=== PATIENT | male | born 2000 | race Native Hawaiian/Other Pacific Islander ===

== ENCOUNTER 2022-08-29 22:53 | Emergency (ER) | payer BC, SELFPAY ==
[2022-08-29 23:03] VITALS: BP 135/84; PULSE 89; RESP 18; TEMP 36.9; O2SAT 98
--- OUTSIDE RECORDS SUMMARY | 2022-08-29 23:39 | XMS_ITS | Continuity of Care Document ---
:2000 Author Organization [facility] Address Unavailable , Encounter 10/07/21 - 10/07/21 [facility] Encounter Diagnosis Concussion (Discharge Diagnosis) - 10/07/21 Discharge Disposition: Home Attending Physician: Denisse Vogt Admitting Physician: Denisse Vogt Referring Physician: Denisse Vogt Allergies, Adverse Reactions, Alerts Substance Reaction Severity Status Nickel Active Assessment and Plan Extracted from: Title: Clinical Document Author: Denisse Vogt Date : 10/07/21 Emergency Department Work/School Excuse This Patient was seen in the Emergency r oom today. Please excuse from work/school for [_] 1 [_] 2 [x] 3 days Comments: The gradual resumption of acti vity. May require shorter lab/lecture/shop times and frequent breaks for 1 week. Completed by: Denisse Vogt PA-C Extracted from: Title: General medical Author: Denisse Vogt Date: 10/07/21 Impression and Plan Diagnosis Concussion ([id number] S06.0X9A, Discharge , Medical) Plan Patient was given the following educatio nal materials: Concussion, Concussion. Follow up with: Return to Emergency Depa rtment Within no specified period. Typical symptoms of a concussion include headache, dizziness, nausea, confusion, feeling tired or fatigued. These are normal symptoms and can persist for several days. Over the next 48 to 72 hours you need to rest. This includes avoiding both mental and physical exertion. Avoid any strenuous activity and do not perform any activities where you could hit your head agai n. You need to rest mentally as well and this includes avoiding tasks that require intense concentration, thinking or problem-solving. I recommend avoiding screen time including tablets/phone/computer/TV as this can make symptoms worse. After 48 to 72 hours you can gradually r esume your normal activity. You should start with a gentle physical and mental activity such as walking, and do schoolwork or basic desk or computer work. If you are having no symptoms you can continue to gradually increase your activity level. If you do any activities that cause her symptoms to worsen such as increasing headache, nausea, dizziness or tiredness you should stop that activity and try again the next day. If you are feeling back to normal self y ou can resume soccer in about 1 to 2 weeks Most people note that concussion symptom s improve over about a week but it can occasionally take longer. If you still have symptoms at 2 weeks you need to see your primary care provider for reevaluation. Return to ED if symptoms worsen: Severe headache, 3 or more episodes of vomiting, extreme dizziness with inability to walk, extreme fatigue or sleepiness with difficulties waking up from sleep, confusion. Functional Status 10/07/21 ADLs (func) Independent Medications diclofenac sodium 75 mg oral enteric coated tablet 75 MG = 1 tab, orally, 2 times a day, # 14 tab, Refill(s) 0, Pharmacy: [facility] [id number] Start Date: 01/30/19 Stop Date: 02/06/19 Status: OrderedMisc Medication Refill(s) 0 Start Date: 01/30/19 Status: OrderedZofran ODT 4 mg oral tablet, disintegrating 4 MG = 1 tab, orally, 3 times a day, # 3 tab, Refill(s) 0, PRN Nausea/Vomiting, Pharmacy: [id number] Start Date: 01/30/19 Stop Date: 02/01/19 Status: OrderedZofran ODT 8 mg oral tablet, disintegrating 8 MG = 1 tab, orally, every 8 hours, # 6 tab, Refill(s) 0, PRN Nausea/Vomiting Start Date: 09/24/17 Stop Date: 09/26/17 Status: Ordered Mental Status 10/07/21 Able to Report correct day of the week Correct Able to Report correct month Accurate within 5 days Able to Report correct year Correct Problem List Diagnosis Diagnosis Type Effective Dates Health Clinical Infor mant Status Service General medical Reason For Visit 10/07/21 Emergency medicine Concussion Discharge 10/07/21 Non-Specified Diagnosis Results Radiology Reports Exam Date Time Procedure Performing Provider Status 10/07/21 11:[address] HEAD Zaida Garzon; Authenticated Notes:(CT HEAD) Reason For Exam: Head trauma, repeat vomiting;Other (Please Specify)IMAGING INTERPRETATION Exam: Noncontrast CT head. Indication: Fell 2 days ago, vomiting, trauma left parietal skull.. Comparison: None. Findings: No evidence of intraparenchymal or extra-axial hemorrhage, cortical infarct, mass, mass effect, or midline shift. Cortical sulci, ventricles, basal cisterns, and cerebellar sulci are small, compatible with patient's young age. No evidence of depressed skull fracture. Retention cyst posterior left maxillary sinus. Mild mucoperiosteal thickening in the ethmoid sinuses. Slight nasal septal deviation to the right. Mastoid air cells are grossly clear. IMPRESSION: No demonstrable intracranial abnormality. Mild inflammatory changes paranasal sinuses. Michael Jacobson MD, MD (Electronic Signature) 10/07/21 1 Technologist(s): SHANNON Vital Signs Most recent to oldest [Reference Range]: 1 Blood Pressure [100-150/50-95 mmHg] 140/82 mmHg (10/07/21 11:07 AM) Respiratory Rate [12-20 br/min] 16 br/min (10/07/21 11:07 AM) Temperature Oral [96-100 DegF] 98.1 DegF (10/07/21 11:07 AM) Pulse Rate [55-100 bpm] 96 bpm (10/07/21 11:07 AM) Oxygen Saturation [94-100 %] 97 % (10/07/21 11:07 AM) Do you have these Coronavirus symptoms? None (10/07/21 11:07 AM) Close contact w lab confirm Coronavirus No (10/07/21 11:07 AM) Have you traveled to Coronavirus area No (10/07/21 11:07 AM) Social History Social History Type Response Smoking Status Never (less than 100 in life time); Never; Tobacco Screening/Education Patient was screened for tobacco use and is a nonuser. entered on: 10/07/21 Sex Male Hospital Discharge Instructions Patient Coiwmdqgy17/23/2022 12:23:24ConcussionConcussion A concussion??is a type of brain injury.??It can be caused by a direct??hit or blow??to the head, neck, face, or??body. The force of the blow??makes??the head??and brain shake quickly back and forth.??In some cases you??may??lose consciousness.??Depending on the severity of the blow, it will take froma few hours up to a few days to get better. Sometimes symptoms may last a few months or longer. Thisis called post-concussion syndrome. At first, you may have a headache, nausea, vomiting, or dizziness. You may also have problems concentrating or remembering things. This is normal. Symptoms should get better as the hours and days go by. Symptoms that get worse could be a sign of bill serious??brain??injury. This might be a bruise or bleeding in the brain. That???s why it???s important to watch for the warning signs listed below. School-age children are more at risk for symptoms that don???t go away after a concussion. They should be watched very closely.?? Home care If your injury is mild and there are no serious signs or symptoms, your healthcare provider may recommend that you be watched??at home. If there is evidence that the injury is more serious, you will bewatched??in the hospital. Follow these tips to help care for yourself at home: ???After a concussion, your healthcare provider may recommend that a family member or friend watched??you for 12 to 24 hours. They may be told to wake you every few hours during sleep to check for the signs below. ???If your face or scalp swells, apply an ice pack for 20 minutes every 1 to 2 hours. Do this until the swelling starts to go down. To make an ice pack, put ice cubes in a plastic bag that seals at thetop. Wrap the bag in a clean, thin towel or cloth. Never put ice or an ice pack directly on the skin. ???You may use acetaminophen to control pain, unless another pain medicine was prescribed. Don't useaspirin or ibuprofen after a head injury.??If you have long-lasting (chronic)??liver or kidney disease, talk with your healthcare provider??before using these medicines. Also talk with your provider??if you ever had a stomach ulcer or??gastrointestinal bleeding. ???For the next 24 hours: oDon???t drink alcohol or take sedatives or medicines that make you sleepy. oDon???t drive or operate machinery. oDon't do anything strenuous. Don???t lift or strain. ???Don???t return??right away??to sports or??to??any activity??where you could??hit your head. Wait??until all symptoms are gone and you have been cleared by your??healthcare provider.??Having a??second head injury before??you??fully recover??from the first one can lead to serious brain injury. ???After a few days, it???s OK to go back to your normal daily activities. But don???t do anything that could cause your head to be hit again. Follow-up care Follow up with your healthcare provider??in 1 week, or as directed. A radiologist will review any X-rays or CT scans that were taken. You will be told of any new findings that may affect your care. When to seek medical advice Call your healthcare provider right away??if any of these occur: ???Headache??or dizziness??that won???t go away ???Redness, warmth, or pus from the swollen area Call 911 Call 911 or get medical care right away if any of these occur: ???Repeated vomiting (it???s common to vomit??once after a head injury) ???Headache or dizziness that is severe or gets worse ???Loss of consciousness ???Unusual drowsiness, or unable to wake up as usual ???Weakness or decreased ability to walk or move any limb ???Confusion, agitation,??or change in behavior or speech, or memory loss ???Blurred vision ???Convulsion (seizure) ???Swelling on the scalp or face that gets worse ???Changes in pupil size (the black part of the eye) ???Fluid draining from or bleeding from the nose or ears ?? 5218-5713 [employer]. [address], [place] [address]. All rights reserved. This information is not intended as a substitute for professional medical care. Always follow your healthcare professional's instructions. Note Michael Jacobson MD: VERIFY Michael Jacobson MD: VERIFY, TRANSCRIBE Contributor_system, POWERSCRIBE: TRANSCRIBE Event Display: RAD Interpretation Authored Date: Exam: Noncontrast CT head. Indication: Fell 2 days ago, vomiting, trauma left parietal skull.. Comparison: None. Findings: No evidence of intraparenchymal or extra-axial hemorrhage, cortical infarct, mass, mass effect, or midline shift. Cortical sulci, ventricles, basal cisterns, and cerebellar sulci are small, compatible with patient's young age. No evidence of depressed skull fracture. Retention cyst posterior left maxillary sinus. Mild mucoperiosteal thickening in the ethmoid sinuses. Slight nasal septal deviation to the right. Mastoid air cells are grossly clear.
--- OUTSIDE RECORDS SUMMARY | 2022-08-29 23:39 | XMS_ITS | Continuity of Care Document ---
:2000 Author Organization [facility] Address Unavailable , Encounter 01/06/22 - 01/06/22 [facility] Encounter Diagnosis Influenza A (Discharge Diagnosis) - 01/06/22 Discharge Disposition: Home Attending Physician: Surinder Palacios DO Admitting Physician: Surinder Palacios DO Referring Physician: Surinder Palacios DO Allergies, Adverse Reactions, Alerts Substance Reaction Severity Status Nickel Active Assessment and Plan Extracted from: Title: Clinical Document Author: Surinder Palacios DO Da te: 01/06/22 Emergency Department Work/School Excuse This Patient was seen in the Emergency r oom today. Please excuse from work/school for [x] 1 [_] 2 [_] 3 days Comments: Completed by: Slade Palacios DO Extracted from: Title: General medical Author: Surinder Palacios DO Date : 01/06/22 Impression and Plan Impression Diagnosis Influenza A ([id number] J10.1, Discharge, Medical) Plan Condition: Improved. Disposition: Discharged: to home. Prescriptions: Launch prescriptions Pharmacy: oseltamivir 75 mg oral capsule (Prescrib e): 75 MG = 1 CAP, orally, every 12 hours, X 5 Days, # 10 CAP, Refill(s) 0, Pharmacy: [id number] - [facility], [address], 01/06/2022 20:18 CDT, Height, cm, 96.7, 01/06/2022 20:18 CDT, Weight, kg. Patient was given the following educatio nal materials: Influenza (Adult). Follow up with: Follow up with primary c are provider Within no specified period. Return to the ED with any worsening symptoms or concerns.. Counseled: Patient, Family, Regarding di agnosis, Regarding diagnostic results, Regarding treatment plan, Regarding prescription, Patient indicated understanding of instructions. Functional Status 01/06/22 ADLs (func) Independent Disabilities (fun) None Medications diclofenac sodium 75 mg oral enteric coated tablet 75 MG = 1 tab, orally, 2 times a day, # 14 tab, Refill(s) 0, Pharmacy: [facility] [id number] Start Date: 01/30/19 Stop Date: 02/06/19 Status: OrderedMisc Medication Refill(s) 0 Start Date: 01/30/19 Status: Orderedoseltamivir 75 mg oral capsule 75 MG = 1 CAP, orally, every 12 hours, X 5 Days, # 10 CAP, Refill(s) 0, Pharmacy: [id number] - [facility], [address], 01/06/22 20:18:00 CDT, Height, cm, 96.7, 01/06/22 20:18:00 CDT, Weight, kg Start Date: 01/06/22 Stop Date: 01/11/22 Status: OrderedZofran ODT 4 mg oral tablet, disintegrating 4 MG = 1 tab, orally, 3 times a day, # 3 tab, Refill(s) 0, PRN Nausea/Vomiting, Pharmacy: [facility] [id number] Start Date: 01/30/19 Stop Date: 02/01/19 Status: OrderedZofran ODT 8 mg oral tablet, disintegrating 8 MG = 1 tab, orally, every 8 hours, # 6 tab, Refill(s) 0, PRN Nausea/Vomiting Start Date: 09/24/17 Stop Date: 09/26/17 Status: Ordered Mental Status 01/06/22 Able to Report correct day of the week Correct Able to Report correct month Accurate within 5 days Able to Report correct year Correct Problem List Diagnosis Diagnosis Type Effective Dates Health Clinical Infor mant Status Service General medical Reason For Visit 01/06/22 Emergency medicine Influenza A Discharge 01/06/22 Non-Specified Diagnosis Procedures Procedure Date Related Diagnosis Body Site Status Collection of venous blood by 01/06/22 Completed venipuncture Results Laboratory List Name Date CBC/Diff 01/06/22 Comp Met Panel (CMP) 01/06/22 Magnesium, Blood 01/06/22 COVID 19/influenza A/B RNA PCR 01/06/22 Most recent to oldest [Reference Range]: 1 Influenza A PCR [Flu A Not Detected] Flu A Detected *ABN* (01/06/22 8:51 PM) Influenza B PCR [Flu B Not Detected] Flu B Not Detecte d (01/06/22 8:51 PM) Differential Type AUTO *NA* (01/06/22 8:55 PM) Neutro Absolute Auto [1.50-8.00 K/uL] 7.60 K/uL (01/06/22 8:55 PM) Lymph Absolute Auto [1.00-4.80 K/uL] 1.50 K/uL (01/06/22 8:55 PM) [place] Absolute Auto [0.50-1.50 K/uL] .90 K/uL (01/06/22 8:55 PM) Eos Absolute Auto [0.20-0.60 K/uL] .00 K/uL *LOW* (01/06/22 8:55 PM) Baso Absolute Auto [0.00-0.40 K/uL] .00 K/uL (01/06/22 8:55 PM) Neutro% Auto 75.3 % *NA* (01/06/22 8:55 PM) Lymph% Auto 15.1 % *NA* (01/06/22 8:55 PM) Baso% Auto 0.3 % *NA* (01/06/22 8:55 PM) Eos% Auto 0.1 % *NA* (01/06/22 8:55 PM) [place]% Auto 9.2 % *NA* (01/06/22 8:55 PM) First Test No *NA* (01/06/22 8:51 PM) Employed in healthcare No *NA* (01/06/22 8:51 PM) Symptomatic as defined by CDC Yes *NA* (01/06/22 8:51 PM) Hospitalized Unknown *NA* (01/06/22 8:51 PM) ICU Unknown *NA* (01/06/22 8:51 PM) Resides in congregate care setting No *NA* (01/06/22 8:51 PM) ? Not *NA* (01/06/22 8:51 PM) Patient Race Unknown *NA* (01/06/22 8:51 PM) Patient Ethnicity Unknown *NA* (01/06/22 8:51 PM) SARS-CoV-2 [Not Detected] Not Detected (01/06/22 8:51 PM) Albumin [3.5-5.7 g/dL] 4.3 g/dL (01/06/22 8:55 PM) Alk Phos [34-104 mIU/L] 75 mIU/L (01/06/22 8:55 PM) Bili Total [0.0-1.0 mg/dL] 0.5 mg/dL (01/06/22 8:55 PM) Calcium [8.6-10.8 mg/dl] 8.6 mg/dl (01/06/22 8:55 PM) Chloride [98-107 mEq/L] 105 mEq/L (01/06/22 8:55 PM) Magnesium [1.9-2.7 mg/dl] 1.8 mg/dl *LOW* (01/06/22 8:55 PM) Sodium [136-145 mEq/L] 139 mEq/L (01/06/22 8:55 PM) Total Protein [6.4-8.3 g/dL] 7.2 g/dL (01/06/22 8:55 PM) Corrected Calcium [8.9-10.3 mg/dL] 8.4 mg/dL *LOW* (01/06/22 8:55 PM) Anion Gap [8.0-16.0 mEq/L] 12.1 mEq/L (01/06/22 8:55 PM) Calc GFR >60 mL/min/1.73m2 1 *NA* (01/06/22 8:55 PM) BUN [7-25 mg/dL] 10 mg/dL (01/06/22 8:55 PM) Creatinine [0.70-1.30 mg/dl] .85 mg/dl (01/06/22 8:55 PM) Glucose Level [70-99 mg/dl] 131 mg/dl *HI* (01/06/22 8:55 PM) Hct [41.0-53.0 %] 40.8 % *LOW* (01/06/22 8:55 PM) Hgb [13.5-17.5 g/dL] 14.2 g/dL (01/06/22 8:55 PM) Platelet [150-440 K/uL] 221 K/uL (01/06/22 8:55 PM) Potassium [3.5-5.1 mEq/L] 3.1 mEq/L *LOW* (01/06/22 8:55 PM) WBC [4.5-11.0 K/uL] 10.1 K/uL (01/06/22 8:55 PM) ALT [7-52 IU/L] 42 IU/L (01/06/22 8:55 PM) AST [13-39 IU/L] 25 IU/L (01/06/22 8:55 PM) CO2 [21-31 mEq/L] 25 mEq/L (01/06/22 8:55 PM) MCH [26-34 pg] 30 pg (01/06/22 8:55 PM) MCHC [31.0-37.0 g/dL] 34.8 g/dL (01/06/22 8:55 PM) MCV [80-100 fL] 87 fL (01/06/22 8:55 PM) RBC [4.70-6.00 M/uL] 4.67 M/uL *LOW* (01/06/22 8:55 PM) RDW [11.8-15.6 %] 13.1 % (01/06/22 8:55 PM) Estimated Creatinine Clearance 159.81 (01/06/22 9:35 PM) 1Result Comment: This is the calculated GFR - Male.Radiology Reports Exam Date Time Procedure Performing Provider Status 01/06/22 9:06 PM RA CHEST PA Tabatha Aviles; Authenticated Notes:(RA CHEST PA) Reason For Exam: cough/chest painRA CHEST 1 VIEW ONE VIEW CHEST X-RAY INDICATION: Chest pain COMPARISON: No prior studies are available. FINDINGS: The heart and mediastinal contours are normal. Pulmonary vascularity is normal. There are no infiltrates, edema or pleural effusion. The bones and soft tissues are unremarkable for patient age. IMPRESSION: 1. No acute cardiopulmonary abnormality. Electronically signed by: Dr Norman Donald MD 01/06/2022 9:10 PM CDT Study Location: [facility] Workstation: [id number] Norman Donald MD, MD Technologist(s): ADELIA Vital Signs Most recent to oldest 1 2 3 [Reference Range]: Blood Pressure 110/58 mmHg 132/80 mmHg 135/74 mmHg [100-150/50-95 mmHg] (01/06/22 9:34 PM) (01/06/22 9:12 PM) ( 2 8:47 PM) Mean Arterial Pressure 75 mmHg 97 mmHg 94 mmHg (01/06/22 9:34 PM) (01/06/22 9:12 PM) (01/06/22 8:4 7 PM) Machine Mean Arterial 78 mmHg 101 mmHg Pressure (01/06/22 9:34 PM) (01/06/22 9:12 PM) BP Site Left upper arm Left upper arm Left upper arm (01/06/22 9:34 PM) (01/06/22 9:12 PM) (01/06/22 8:5 7 PM) Respiratory Rate [12-20 24 br/min 20 br/min 20 br/mi n br/min] *HI* (01/06/22 9:34 PM) (01/06/22 9:12 PM) (01/06/22 9:39 PM) Temperature Oral [96-100 100.9 DegF DegF] *HI* (01/06/22 8:18 PM) Pulse Rate [55-100 bpm] 106 bpm 102 bpm 105 bpm *HI* *HI* *HI* (01/06/22 9:39 PM) (01/06/22 9:34 PM) (01/06/22 9:1 2 PM) Heart Rate Monitored 101 bpm 101 bpm 104 bpm [59-101 bpm] (01/06/22 9:39 PM) (01/06/22 9:34 PM) *HI* (01/06/22 9:12 PM ) Oxygen Saturation [94-100 99 % 99 % 98 % %] (01/06/22 9:39 PM) (01/06/22 9:34 PM) (01/06/22 9:1 2 PM) Height 176 cm (01/06/22 8:18 PM) Height Method Stated (01/06/22 8:18 PM) Weight 96.7 kg (01/06/22 8:18 PM) Level of Consciousness Alert Alert Alert (01/06/22 10:00 PM) (01/06/22 9:39 PM) (01/06/22 8: 57 PM) Orientation Oriented x 4 Oriented x 4 (01/06/22 9:39 PM) (01/06/22 8:57 PM) Do you have these Fever, Coronavirus symptoms? Cough, Shortness of breath, Chills, Repeated shaking with chills, Muscle pain, Headache, Sore throat (01/06/22 8:18 PM) Close contact w lab confirm No Coronavirus (01/06/22 8:18 PM) Have you traveled to No Coronavirus area (01/06/22 8:18 PM) Social History Social History Type Response Smoking Status Never (less than 100 in life time); Never; Tobacco Screening/Education Patient was screened for tobacco use and is a nonuser. entered on: 10/07/21 Sex Male Hospital Discharge Instructions Patient Rqwaspkld95/25/2022 21:51:47Influenza (Adult)Influenza (Adult) Influenza is also called the flu. It's a viral illness that affects the air passages of your lungs. It's different from the common cold. The flu can easily be passed from one to person to another. It may be spread through the air by coughing and sneezing. Or it can be spread by touching the sick person and then touching your own eyes, nose, or mouth. The flu starts 1 to 3 days after you are exposed to the flu virus. It may last??for 1 to 2 weeks butsometimes people feel tired or fatigued for many weeks afterward. You usually don???t need to take antibiotics unless you are at high risk for or have a complication . This might be an ear or sinus infection or pneumonia. Symptoms of the flu may be mild or severe. They can include extreme tiredness (wanting to stay in bed all day), chills, fevers, muscle aches, soreness with eye movement, headache, and a dry, hacking cough. Antiviral medicine for the flu is available by prescription. If you start taking it within 48 hours,it may help reduce how long your symptoms last and how severe they are. Your provider may do a test to find out if you have influenza and which strain you have. Home care Follow these guidelines when caring for yourself at home: ???Stay away from cigarette smoke, whether yours or other people???s. ???Acetaminophen or ibuprofen will help ease your fever, muscle aches, and headache. Don???t give aspirin to anyone younger than 18 who has the flu. This can cause a serious condition called Carole syndrome. ???Nausea, loose stools, and loss of appetite are common with the flu. Eat light meals. Drink 6 to 8glasses of liquids every day. Good choices are water, sport drinks, soft drinks without caffeine, juices, tea, and soup. Extra fluids will also help loosen secretions in your nose and lungs. ???Virt-olf-oqupjfi cold medicines will not make the flu go away faster. But the medicines may help with coughing, sore throat, and congestion in your nose and sinuses. Don???t use a decongestant if you have high blood pressure. ???Stay home until your fever has been gone for at least 24 hours without using medicine to reduce fever. Follow-up care Follow up with your healthcare provider, or as advised, if you are not getting better over the next week. If you are age 65 or older, talk with your provider about getting a pneumococcal vaccine every 5 years. You should also get this vaccine if you have chronic asthma or COPD. All adults should get a flu vaccine every fall. Ask your provider about this. When to seek medical advice Call your healthcare provider right away if you have the flu and any of these occur: ???Cough with lots of colored mucus (sputum) or blood in your mucus ???Chest pain, shortness of breath, wheezing, or trouble breathing ???Severe headache, or face, neck, or ear pain ???New rash??with fever ???Fever of 100.4??F (38??C)??or higher, or as??directed by your healthcare provider ???Confusion, behavior change, or seizure ???Severe weakness or dizziness ???You get a new??fever or cough after getting better for a few days Also call your provider if you have flu symptoms and have a weakened immune system or are taking medicines that can weaken your immune system. These include steroids and certain anti-inflammatory medicines. ?? [id number] [employer]. [address] [place] [address], [place] [address]. All rights reserved. This information is not intended as a substitute for professional medical care. Always follow your healthcare professional's instructions. Note Norman Donald MD: VERIFY, PERFORM, VERIFY Event Display: RAD Interpretation Authored Date: ONE VIEW CHEST X-RAY INDICATION: Chest pain COMPARISON: No prior studies are available. FINDINGS: The heart and mediastinal contours are normal. Pulmonary vascularity is normal. There are no infiltrates, edema or pleural effusion. The bones and soft tissues are unremarkable for patient age. IMPRESSION: 1. No acute cardiopulmonary abnormality. Electronically signed by: Dr Norman Donald MD 01/06/2022 9:10 PM CDT Study Location: [facility] Workstation: [id number] Norman Donald MD, MD Technologist(s): ADELIA
[2022-08-30] MEDS: BUPIVACAINE 0.25% 30 ML INJECTION (01:21)
[2022-08-30 01:57] VITALS: BP 124/82; PULSE 76; RESP 16
--- NOTE | 2022-08-30 03:06 | ED_ITS ---
HPI - General Adult General Chief complaint: Skin/Abscess/Foreign Body Stated complaint: Toe Pain Time Seen by Provider: 08/29/22 23:12 History of Present Illness HPI narrative: 21-year-old young man accompanied by girlfriend presenting with complaint of bilateral great toe pain. I have seen Juan C for recurrent ingrown toenails in this ED. have performed wedge resections. We have discussed potential need for germinal matrix ablation in the past. Has not been in touch with his primary in some time. Does have a relationship actually with podiatry in the past for another issue. His is struggling over the last couple of weeks with return of pain from ingrown toenails. Has had increasing pain over the last few weeks. Does enjoy playing soccer. Yesterday apparently wrapped some gauze around his toes in an effort at protection. This probably increased pressure and potential injury inside soccer boot. He has had much more pain since then over the last couple of days. Some purulent drainage. But applying antibiotic ointment. Also soaking in warm water. He has not been trying nail edge elevation at night. No fever. Related Data Home Medications Medication Instructions Recorded Confirmed hydrocortisone 2.5 % topical cream applic topical 08/29/22 Allergies Allergy/AdvReac Type Severity Reaction Status Date / Time No Known Drug Allergies Allergy Verified 08/29/22 23:03 Review of Systems Status of ROS: Reports: 6 or more systems reviewed and unremarkable except as noted in History and below [facility] Social History Smoking Status: Never smoker Do you use any of these nicotine containing products: None Second hand tobacco smoke exposure: No How often do you have a drink containing alcohol: never How often do you have six or more drinks on one occasion: Never AUDIT-C Alcohol total score: 0 Non-prescribed substance use: denies use service: No Exam Narrative: Exam Narrative: Pleasant. Bespectacled. Breathing easily. Has feet loosely in knit running shoes. Examination of his feet show medial aspect of the right great toe to be quite heaped up granulation tissue and purulence. Not able to see the corner of the nail edge. Inflammatory changes and sloughing of skin consistent with recurrent or chronic swelling is evident. There is similar inflammation but much less so in the lateral aspect of the nail edge. On the left great toenail bilateral ingrown edges with granulation tissue some erythema purulent drainage it. Little bit less than the right medial nail edge. Also some sloughing of skin consistent with chronic swelling/inflammation. Const: Vital Signs, click to edit/add: Vital Signs - 24 hr 08/29/22 23:03 08/30/22 01:57 Temperature 98.5 F Pulse Rate [Pulse Oximeter] 89 76 Respiratory Rate 18 16 Blood Pressure [Ri ght Upper Arm] 135/84 124/82 Pulse Oximetry 98 Oxygen Delivery Me thod Room Air Documenting provider has reviewed patient's vital signs: yes Course Vital Signs Vital signs: Initial Vital Signs Temperature 98.5 F 08/29/22 23:03 Temperature Source Temporal Artery Scan 08/29/22 23:03 Pulse Rate 89 08/29/22 23:03 Pulse Rhythm 08/29/22 23:03 Respiratory Rate 18 08/29/22 23:03 Blood Pressure 135/84 08/29/22 23:03 Blood Pressure Mean 101 08/29/22 23:03 Pulse Oximetry 98 08/29/22 23:03 Oxygen Delivery Method 08/29/22 23:03 Vital Signs Temperature 98.5 F 08/29/22 23:03 Pulse Rate 89 08/29/22 23:03 Respiratory Rate 18 08/29/22 23:03 Blood Pressure 135/84 08/29/22 23:03 Pulse Oximetry 98 08/29/22 23:03 Oxygen Delivery Method 08/29/22 23:03 Temperature 98.5 F 08/29/22 23:03 Pulse Rate 76 08/30/22 01:57 Respiratory Rate 16 08/30/22 01:57 Blood Pressure 124/82 08/30/22 01:57 Pulse Oximetry 98 08/29/22 23:03 Oxygen Delivery Method 08/29/22 23:03 Medical Decision Making MDM Narrative Medical decision making narrative: We discussed options for care and that I would encourage him to follow up outpatient with primary or Podiatry as discussed for more definitive treatment. He does not have that arranged yet and understandably would like more immediate relief of his pain. Would like to proceed with wedge resection of great toenails. Informed consent obtained. Reason for wedge resection is pain and paronychia. Set up to soak in Hibiclens water solution. Injected both great toes with Marcaine. Generally good anesthesia was achieved ultimately re-dosing was required for the medial aspect of the left great toenail. Toes were cleansed with Betadine. An elevator used to elevate the medial nail aspect of the right great toe and bilateral edges of the left great toenail. Nail was cut with suture scissors and removed wedge with mosquito. Granulation tissue was trimmed from all edges. Cautery applied with silver nitrate was needed on both medial nail edges. Antibiotic ointment, Telfa nonstick dressing, Kerlix gauze and Coban applied in light pressure dressing. Tolerated quite well. Only complication or challenge was getting full anesthesia of the medial edge of the left great toenail. Ultimately this was accomplished. Less than 5 mL of blood loss. Discharge Plan Discharge Clinical Impression: Ingrowing right great toenail, Ingrowing left great toenail, Paronychia due to ingrown nail Patient Disposition: Home w/ Parent or Adult Condition: Improved Instructions: Ingrown Nail (ED), Nail Removal (ED) Additional Instructions: Elevate, ibuprofen, acetaminophen for discomfort. I would soak your toes in warm soapy or warm epsom salt water daily over the next 4 - [address] antibiotic ointment and nonstick dressing of some sort over the next 5 days and then can probably go to a dry dressing/band-aid for protection. Watch for increasing redness after 2 days, swelling, marked increase in pain, purulent drainage. I think it would be good to reestablish with primary care. Talk with them or Dr. Cordero since you already have a relationship with him about actually cauterizing part of the nail bed, particularly on your right toe. Remember you want to generally be able to see the corners of your toenails. Yes. Do look for some wide soccer boots. Try on a few different pairs to see what is really going to work for you. Prescriptions: No Action hydrocortisone 2.5 % cream TOPICAL Label Comments: APPLY CREAM TO AFFECTED AREA TWICE DAILY NEEDED Follow Up/Referrals: Geovanna Mcwilliams MD [Primary Care Provider] - Stand Alone Forms: [facility] Info Instructions
== END 2022-08-30 01:58 | disposition home or self-care (01) ==
PROVIDERS: Emergency Provider Family Medicine; PCP Pediatrics
DX: L60.0 Ingrowing nail (principal); L03.032 Cellulitis of left toe; L03.031 Cellulitis of right toe
CPT/HCPCS: 11765; 99283; 99284; J3490

== ENCOUNTER 2022-09-18 11:02 | Emergency (ER) | payer BC, SELFPAY ==
[2022-09-18 11:18] VITALS: BP 124/81; PULSE 74; RESP 16; TEMP 36.4; O2SAT 100; BMI 30.6
--- NOTE | 2022-09-18 11:46 | ED.LOWEXIN ---
HPI - Extremity Injury (Lower) General Chief Complaint: Extremity Pain/Injury, Lower Stated Complaint: Ingrown toenail RT big toe Time Seen by Provider: 09/18/22 11:35 History of Present Illness HPI Narrative: This 22-year-old male comes in with an injury to his right great toenail. He states that he had this toenail trimmed back because it was growing in on the medial aspect. This was trimmed about a week ago. Today just prior to arrival here an object fell onto this same toe. It landed on the lateral aspect of the toenail. He has a small amount of dried blood along the border of the nail with the skin of the toe. He does not report any other injury. Related Data Home Medications Medication Instructions Recorded Confirmed No Known Home Medications 09/18/22 09/18/22 Allergies Allergy/AdvReac Type Severity Reaction Status Date / Time No Known Drug Allergies Allergy Verified 08/29/22 23:03 Review of Systems Status of ROS: Reports: 10 or more systems reviewed and unremarkable except as noted in History and below Narrative: Constitutional: No fevers, no weight gain or loss. Eyes: No discharge. No vision changes. HENT: No congestion, no sore throat, no ear pain. Cardiovascular: No chest pain, no palpitations. Respiratory: No shortness of breath, no wheezes, no cough. Gastrointestinal: No abdominal pain, no vomiting, no diarrhea. Genitourinary: No dysuria, no hematuria. Musculoskeletal: Normal range of motion. Skin: No rashes, no pruritis. Neurological: No dizziness, weakness, sensory change, speech change. Endo/Heme/Allergies: No bruising or bleeding. No polydipsia. Pysch: no suicidality, no anxiety, no insomnia. All other systems reviewed and are negative. [facility] Social History Smoking Status: Never smoker Do you use any of these nicotine containing products: None Second hand tobacco smoke exposure: No How often do you have a drink containing alcohol: never How often do you have six or more drinks on one occasion: Never AUDIT-C Alcohol total score: 0 Non-prescribed substance use: denies use service: No Exam Narrative: Exam Narrative: Constitutional: Well-developed, well-nourished, no acute distress. HEENT: Normocephalic, atraumatic. Neck: Normal range of motion. Nontender. Supple. Heart: Regular. No murmurs. Normal rate. Intact distal pulses. Lungs: Clear to auscultation. No chest discomfort. No wheezes, rhonchi, or rales. Abdomen: Normal bowel sounds. Nontender. No rebound tenderness. Genitalia: Deferred. Back: No midline tenderness. Normal range of motion. Extremities: Normal range of motion. Small amount of dried blood along the lateral border of the right great toenail. There is no sign of laceration. Skin: Intact. No rash. Warm. No erythema or pallor. Neurologic: No altered sensation. No weakness. Alert and oriented. Psychiatric: No suicidality. No anxiety or depression. No insomnia. Nursing notes and vitals signs are reviewed. Const: Vital Signs, click to edit/add: Vital Signs - 24 hr 09/18/22 11:18 Temperature 97.5 F L Pulse Rate [Pulse Oximeter] 74 Respiratory Rate 16 Blood Pressure [Ri ght Upper Arm] 124/81 Pulse Oximetry 100 Oxygen Delivery Me thod Room Air Course Vital Signs Vital signs: Initial Vital Signs Temperature 97.5 F L 09/18/22 11:18 Temperature Source Temporal Artery Scan 09/18/22 11:18 Pulse Rate 74 09/18/22 11:18 Respiratory Rate 16 09/18/22 11:18 Blood Pressure 124/81 09/18/22 11:18 Blood Pressure Mean 95 09/18/22 11:18 Blood Pressure Position Supine 09/18/22 11:18 Pulse Oximetry 100 09/18/22 11:18 Oxygen Delivery Method 09/18/22 11:18 Vital Signs Temperature 97.5 F L 09/18/22 11:18 Pulse Rate 74 09/18/22 11:18 Respiratory Rate 16 09/18/22 11:18 Blood Pressure 124/81 09/18/22 11:18 Pulse Oximetry 100 09/18/22 11:18 Oxygen Delivery Method 09/18/22 11:18 Temperature 97.5 F L 09/18/22 11:18 Pulse Rate 74 09/18/22 11:18 Respiratory Rate 16 09/18/22 11:18 Blood Pressure 124/81 09/18/22 11:18 Pulse Oximetry 100 09/18/22 11:18 Oxygen Delivery Method 09/18/22 11:18 MDM - Extremity Injury (Lower) MDM Narrative Medical decision making narrative: This patient comes in for evaluation of an injury to his right great toenail. This same toenail was trimmed back on the medial aspect about a week ago. Today he has some dried blood along the lateral aspect because of an object that fell onto it just prior to arrival. I did clean this dried blood away from the nail and it is border with the skin of his right great toe. There is no laceration needing repair. There is no subungual hematoma. Discharge Plan Discharge Clinical Impression: Injury of toe on right foot Patient Disposition: Home, Self-Care Condition: Stable Additional Instructions: Increase activity as tolerated. Use [id number] medicines as needed and directed. Follow up with MD or return if worsening. Prescriptions: No Action No Known Home Medications Follow Up/Referrals: Geovanna Mcwilliams MD [Primary Care Provider] - Stand Alone Forms: [employer] Info Instructions
== END 2022-09-18 12:10 | disposition home or self-care (01) ==
LOC: ED 12:01
PROVIDERS: Emergency Provider Emergency Medicine Emergency Medical Services; PCP Pediatrics
DX: S99.921A Unspecified injury of right foot, initial encounter (principal); W20.8XXA Other cause of strike by thrown, projected or falling object, initial encounter
CPT/HCPCS: 99282; 99283; 99284

== ENCOUNTER 2022-11-04 18:38 | Emergency (ER) | payer BC, SELFPAY ==
[2022-11-04 19:06] VITALS: BP 147/82; PULSE 82; RESP 16; TEMP 36.4; O2SAT 97; BMI 31.9
--- NOTE | 2022-11-04 19:31 | ED.GENADULT ---
HPI - General Adult General Chief complaint: Extremity Pain/Injury, Lower Stated complaint: Infected Toenail Time Seen by Provider: 11/04/22 19:12 History of Present Illness HPI narrative: This 22-year-old male comes in reporting pain and swelling with some discharge on the lateral aspect of the distal corner of his right great toenail. He has had some problems with this toe over the past month or more and did have the medial aspect trim back. The corner of the lateral aspect of this same toenail may be cutting into his tissue and increasing risk for infection. Currently he has swelling with some discomfort and a small amount discharge in this area. The nail itself appears healthy. He states that he is attempting to use footwear that is comfortable. He does work on his feet every day. Related Data Home Medications Medication Instructions Recorded Confirmed No Known Home Medications 09/18/22 09/18/22 Allergies Allergy/AdvReac Type Severity Reaction Status Date / Time No Known Drug Allergies Allergy Verified 11/04/22 19:09 Review of Systems Status of ROS: Reports: 10 or more systems reviewed and unremarkable except as noted in History and below Narrative: Constitutional: No fevers, no weight gain or loss. Eyes: No discharge. No vision changes. HENT: No congestion, no sore throat, no ear pain. Cardiovascular: No chest pain, no palpitations. Respiratory: No shortness of breath, no wheezes, no cough. Gastrointestinal: No abdominal pain, no vomiting, no diarrhea. Genitourinary: No dysuria, no hematuria. Musculoskeletal: Normal range of motion. Infected right great toe as described above. Skin: No rashes, no pruritis. Neurological: No dizziness, weakness, sensory change, speech change. Endo/Heme/Allergies: No bruising or bleeding. No polydipsia. Pysch: no suicidality, no anxiety, no insomnia. All other systems reviewed and are negative. [facility] Social History Smoking Status: Never smoker Do you use any of these nicotine containing products: None Second hand tobacco smoke exposure: No How often do you have a drink containing alcohol: never How often do you have six or more drinks on one occasion: Never AUDIT-C Alcohol total score: 0 Non-prescribed substance use: denies use service: No Exam Narrative: Exam Narrative: Constitutional: Well-developed, well-nourished, no acute distress. HEENT: Normocephalic, atraumatic. Neck: Normal range of motion. Nontender. Supple. Heart: Intact distal pulses. Lungs: No chest discomfort. No wheezes, rhonchi, or rales. Abdomen: Nontender. Back: Normal range of motion. Extremities: Normal range of motion. The lateral aspect of the distal portion of the right great toe has swelling overlying the corner of the toenail with small amount of discharge. Skin: Intact. No rash. Warm. No erythema or pallor. Neurologic: No altered sensation. No weakness. Alert and oriented. Psychiatric: No suicidality. No anxiety or depression. No insomnia. Nursing notes and vitals signs are reviewed. Const: Vital Signs, click to edit/add: Vital Signs - 24 hr 11/04/22 19:06 Temperature 97.6 F Pulse Rate [Pulse Oximeter] 82 Respiratory Rate 16 Blood Pressure [Ri ght Upper Arm] 147/82 H Pulse Oximetry 97 Oxygen Delivery Me thod Room Air Course Vital Signs Vital signs: Initial Vital Signs Temperature 97.6 F 11/04/22 19:06 Temperature Source Temporal Artery Scan 11/04/22 19:06 Pulse Rate 82 11/04/22 19:06 Pulse Rhythm Regular 11/04/22 19:06 Pulse Strength 3+ Normal 11/04/22 19:06 Respiratory Rate 16 11/04/22 19:06 Blood Pressure 147/82 H 11/04/22 19:06 Blood Pressure Mean 103 11/04/22 19:06 Blood Pressure Position Supine 11/04/22 19:06 Pulse Oximetry 97 11/04/22 19:06 Oxygen Delivery Method Room Air 11/04/22 19:06 Vital Signs Temperature 97.6 F 11/04/22 19:06 Pulse Rate 82 11/04/22 19:06 Respiratory Rate 16 11/04/22 19:06 Blood Pressure 147/82 H 11/04/22 19:06 Pulse Oximetry 97 11/04/22 19:06 Oxygen Delivery Method Room Air 11/04/22 19:06 Temperature 97.6 F 11/04/22 19:06 Pulse Rate 82 11/04/22 19:06 Respiratory Rate 16 11/04/22 19:06 Blood Pressure 147/82 H 11/04/22 19:06 Pulse Oximetry 97 11/04/22 19:06 Oxygen Delivery Method Room Air 11/04/22 19:06 Medical Decision Making MDM Narrative Medical decision making narrative: This patient has a paronychial infection of the right great toenail. He may benefit from a podiatry visit as he has had persistent symptoms in this regard. It may be beneficial to trim back the nail or remove the nail. The patient received a prescription for Keflex and is encouraged to use comfortable footwear. He should follow-up with his primary physician or with a teacher dramatics for ongoing management. Discharge Plan Discharge Clinical Impression: Paronychia of great toe Patient Disposition: Home, Self-Care Condition: Unchanged Additional Instructions: Take medication as prescribed. Follow up with primary physician or teacher dramatics for ongoing management. Return if worsening. Prescriptions: No Action No Known Home Medications Follow Up/Referrals: Geovanna Mcwilliams MD [Primary Care Provider] - Stand Alone Forms: [employer] Info Instructions
--- OUTSIDE RECORDS SUMMARY | 2022-11-04 19:43 | XMS_ITS | Continuity of Care Document ---
Author Name Unknown Organization [facility] Address [address] [place] [address] En[facility] 08[facility]18[facility]20 [facility] [address] [place] [address] Discharge Disposition: Home Attending Physician: Ridge Dennis DPSvetlana Admitting Physician: Ridge Dennis DPM Referring Physician: Ridge Dennis DPM Allergies, Adverse Reactions, Alerts Substance Reaction Severity Status Nickel Active Results Laboratory List Name Date SARS Coronavirus 2 RNA Detection, V (COV ID PCR MML) 08/18/20 Most recent to oldest [Reference Range]: 1 First Test Yes (08/18/20 2:08 PM) Employed in healthcare No (08/18/20 2:08 PM) Symptomatic as defined by CDC Yes (08/18/20 2:08 PM) Hospitalized No (08/18/20 2:08 PM) ICU No (08/18/20 2:08 PM) Resides in congregate care setting No (08/18/20 2:08 PM) ? Not (08/18/20 2:08 PM) Patient Race Unknown (08/18/20 2:08 PM) Patient Ethnicity / (08/18/20 2:08 PM) Social History Social History Type Response Smoking Status Never (less than 100 in lifetime);Never; Previous treatment: None; Ready to change: No; Smoking in Household No; Interest in Smoking Cessation Class No; Pt received Daniel Smoking Cessation [facility] Ed No entered on: 01/30/19 Sex Male
--- OUTSIDE RECORDS SUMMARY | 2022-11-04 19:43 | XMS_ITS | Referral Summary ---
Author Name Unknown Organization [facility] Address [address] [place] [phone] Encounter 09/24/17 - 09/24/17 [facility] [address] [place], [place] [address] [address] [facility] Discharge Disposition: Home Attending Physician: Deshawn Hughes MD Admitting Physician: Deshawn Hughes MD Referring Physician: Deshawn Hughes MD Reason for Visit YI Vital Signs 09/24/17 Blood Pressure 128/65mmHg (Normal is 85-11 5/60-75 mmHg) Temperature Oral 98.0 DegF (Normal is 96-1 00 DegF) Pulse Rate 80 bpm (Normal is 60-11 0 bpm) Weight 80.8 kg ADLs (func) Independent Able to Report correct year Correct Able to Report correct month Accurate within 5 d ays Able to Report correct day o f the week Correct Characteristics of Speech Clear Neurological Symptoms None Neurological Symptoms Headache Neurological Symptoms Headache, Nausea Level of Consciousness Alert Orientation Oriented x 4 Allergies, Adverse Reactions, Alerts Nickel Medications ondansetron (Zofran ODT 8 mg oral tablet, disintegrating) 1 tab orally every 8 hours as needed Nausea/Vomiting for 2 Days. Refills: 0. Ordering provider: Deshawn Hughes MD Results 09/24/17 Sodium 140 mEq/L (Normal is 136-1 45 mEq/L) Potassium 3.5 mEq/L (Normal is 3.5-5 .1 mEq/L) Chloride 104 mEq/L (Normal is 98-10 7 mEq/L) CO2 27 mEq/L (Normal is 21-31 mEq/L) Anion Gap 12.5 mEq/L (Normal is 8.0-1 6.0 mEq/L) Glucose Level 120 mg/dL (Normal is 70-99 mg/dL) BUN 8 mg/dL (Normal is 7-25 mg/dL) Creatinine .78 mg/dL (Normal is 0.70- 1.30 mg/dL) Calcium 9.9 mg/dL (Normal is 8.6-1 0.8 mg/dL) Total Protein 7.5 g/dL (Normal is 6.4-8 .3 g/dL) Albumin 4.8 g/dL (Normal is 3.5-5 .7 g/dL) Bili Total 0.3 mg/dL (Normal is 0.0-1 .0 mg/dL) Alk Phos 137 IU/L (Normal is 34-10 4 IU/L) AST 22 IU/L (Normal is 13-39 IU/L) ALT 17 IU/L (Normal is 7-52 IU/L) Corrected Calcium 9.3 mg/dL (Normal is 8.9 -10.3 mg/dL) Lactic Acid Venous 1.0 mmole/L (Normal is 0. 5-2.2 mmole/L) Procalcitonin Lvl 0.06 ng/mL (Normal is 0.0 0-0.50 ng/mL) WBC 6.3 K/uL (Normal is 4.5-1 3.5 K/uL) RBC 5.11 M/uL (Normal is 4.20- 5.60 M/uL) Hgb 15.3 g/dL (Normal is 13.0- 16.0 g/dL) Hct 43.1 % (Normal is 36.0- 50.0 %) MCV 84 fL (Normal is 78-98 fL) MCH 30 pg (Normal is 25-35 pg) MCHC 35.5 g/dL (Normal is 31.0- 37.0 g/dL) RDW 12.1 % (Normal is 11.8- 15.6 %) Platelet 224 K/uL (Normal is 150-4 40 K/uL) Manual Diff? No Man Diff Neutro Percent 50 % (Normal is 50-70 %) Lymph Percent 38 % (Normal is 20-44 %) [place] Percent 10 % (Normal is 2-9 % ) Eos Percent 2 % (Normal is 0-4 % ) Baso Percent 0 % (Normal is 0-2 % ) Neutro Absolute 3.2 K/uL (Normal is 1.5-8 .0 K/uL) Lymph Absolute 2.4 K/uL (Normal is 1.2-5 .2 K/uL) [place] Absolute 0.6 K/uL (Normal is 0.5-1 .5 K/uL) Eos Absolute 0.1 K/uL (Normal is 0.2-0 .6 K/uL) Baso Absolute 0.0 K/uL (Normal is 0.0-0 .4 K/uL) [place] Screen Negative (Normal is Negat carlos) Strep A PCR Strep A Not Detected (Normal is Strep A Not Detected) Encounter Procedures Collection of venous blood by venipuncture Assessment and Plan Extracted from: Title:Headache Author:Deshawn Hughes MD Date:06/01 Impression and Plan Diagnosis Viral sinusitis ([id number] J32.9, Working, Medical) Plan Condition: Improved, Stable. Disposition: Discharged: Time 09/24/2017 18:10:00, to home. Prescriptions: Zofran 8 mg ODT 1 every 8 hours prn #6. Patient was given the following educational materials: SINUSITIS, No Abx, HEADACHE, Unspecified. Follow up with: Follow up with primary care provider Within 3-5 days, only if needed. Counseled: Patient, Family, Regarding diagnosis, Regarding diagnostic results, Regarding treatment plan, Regarding prescription, Patient indicated understanding of instructions. Instructions Patient Education 09/24/2017 15:59:56 HEADACHE, Unspecified Headache, Unspecified Headaches can be caused by a number of things. The cause of your headache isn???t clear. But it doesn???t seem to be a sign of any serious illness. You could have a tension headache or a migraine headache. Stress can cause a tension headache. This can happen if you tense the muscles of your shoulders, neck, and scalp without knowing it. If this stress lasts long enough, you may develop a tension headache. It is not clear why migraines occur, but transient factors called triggers can raise the risk of having a migraine attack. Migraine triggers may include emotional stress or depression, or by hormone changes during the menstrual cycle. Other triggers include control pills and other medicines, alcohol or caffeine, foods with tyramine, eye strain, weather changes, missed meals, and lack of sleep or oversleeping. Other causes of headache include: ?? Viral illness with high fever ?? Head injury with concussion ?? Sinus, ear, or throat infection ?? Dental pain and jaw joint (TMJ) pain More serious but less common causes of headache include stroke, brain hemorrhage, brain tumor, meningitis, and encephalitis. Home care Follow these tips when taking care of yourself at home: ?? Don???t drive yourself home if you were given pain medicine for your headache. Instead, have someone else drive you home. Try to sleep when you get home. You should feel much better when you wake up. ?? Apply heat to the back of your neck to ease a neck muscle spasm. Take care of a migraine headache by putting an ice pack on your forehead or at the base of your skull. ?? If you have nausea or vomiting, eat a light diet until your headache eases. ?? If you have a migraine headache, use sunglasses when in the daylight or around bright indoor lighting until your symptoms get better. Bright glaring light can make this type of headache worse. Follow-up care Follow up with your health care provider if your headache doesn???t get better within the next 24 hours. Talk with your provider If you have frequent headaches. He or she can help figure out a treatment plan. By knowing the earliest signs of headache, and starting treatment right away, you may be able to stop the pain yourself. When to seek medical advice Call your health care provider right away??if any of these occur: ?? Your head pain gets worse ?? Your head pain doesn???t get better within 24 hours ?? You aren???t able to keep liquids down (repeated vomiting) ?? Fever of 100.4??F (38??C) or higher, or as directed by your health care provider ?? Stiff neck ?? Extreme drowsiness, confusion, or fainting ?? Dizziness or dizziness with spinning sensation (vertigo) ?? Weakness in an arm or leg or one side of your face ?? You have difficulty talking or seeing ?? [id number] [employer]. [address] [place] [address], [place] [address]. All rights reserved. This information is not intended as a substitute for professional medical care. Always follow your healthcare professional's instructions. HEADACHE, Unspecified Headache, Unspecified Headaches can be caused by a number of things. The cause of your headache isn???t clear. But it doesn???t seem to be a sign of any serious illness. You could have a tension headache or a migraine headache. Stress can cause a tension headache. This can happen if you tense the muscles of your shoulders, neck, and scalp without knowing it. If this stress lasts long enough, you may develop a tension headache. It is not clear why migraines occur, but transient factors called triggers can raise the risk of having a migraine attack. Migraine triggers may include emotional stress or depression, or by hormone changes during the menstrual cycle. Other triggers include control pills and other medicines, alcohol or caffeine, foods with tyramine, eye strain, weather changes, missed meals, and lack of sleep or oversleeping. Other causes of headache include: ?? Viral illness with high fever ?? Head injury with concussion ?? Sinus, ear, or throat infection ?? Dental pain and jaw joint (TMJ) pain More serious but less common causes of headache include stroke, brain hemorrhage, brain tumor, meningitis, and encephalitis. Home care Follow these tips when taking care of yourself at home: ?? Don???t drive yourself home if you were given pain medicine for your headache. Instead, have someone else drive you home. Try to sleep when you get home. You should feel much better when you wake up. ?? Apply heat to the back of your neck to ease a neck muscle spasm. Take care of a migraine headache by putting an ice pack on your forehead or at the base of your skull. ?? If you have nausea or vomiting, eat a light diet until your headache eases. ?? If you have a migraine headache, use sunglasses when in the daylight or around bright indoor lighting until your symptoms get better. Bright glaring light can make this type of headache worse. Follow-up care Follow up with your health care provider if your headache doesn???t get better within the next 24 hours. Talk with your provider If you have frequent headaches. He or she can help figure out a treatment plan. By knowing the earliest signs of headache, and starting treatment right away, you may be able to stop the pain yourself. When to seek medical advice Call your health care provider right away??if any of these occur: ?? Your head pain gets worse ?? Your head pain doesn???t get better within 24 hours ?? You aren???t able to keep liquids down (repeated vomiting) ?? Fever of 100.4??F (38??C) or higher, or as directed by your health care provider ?? Stiff neck ?? Extreme drowsiness, confusion, or fainting ?? Dizziness or dizziness with spinning sensation (vertigo) ?? Weakness in an arm or leg or one side of your face ?? You have difficulty talking or seeing ?? [id number] [employer]. [address] [place] [address], [place] [address]. All rights reserved. This information is not intended as a substitute for professional medical care. Always follow your healthcare professional's instructions. SINUSITIS, No Abx Sinusitis (No Antibiotics) The sinuses are air-filled spaces within the bones of the face. They connect to the inside of the nose.??Sinusitis??is an inflammation of the tissue lining the sinus cavity. Sinus inflammation can occur during a cold.??It can also be due to allergies to pollens and other particles in the air.??It can cause symptoms such as sinus congestion,??headache, sore throat, facial swelling??and fullness. It may also cause a low-grade fever.??No infection is present, and no antibiotic treatment is needed. Home care ?? Drink plenty of water, hot tea, and other liquids. This may help thin mucus. It also may promotesinus drainage. ?? Heat may help soothe painful areas of the face. Use a towel soaked in hot water. Or, business librarian the shower and direct the hot spray onto your face. Using a vaporizer along with a menthol rub at night may also help. ?? An??expectorant??containing guaifenesin may help thin the mucus and promote drainage from the sinuses. ?? [id number]??decongestants??may be used unless a similar medicine was prescribed. Nasal sprays work the fastest. Use one that contains phenylephrine or oxymetazoline. First blow the nose gently. Then use the spray. Do not use these medicines more often than directed on the label or symptomsmay get worse. You may also use tablets containing pseudoephedrine. Avoid products that combine ingredients, because side effects may be increased. Read labels. You can also ask the pharmacist for help. (NOTE:??Persons with high blood pressure should not use decongestants. They can raise blood pressure.) ?? Hawl-vcj-jirejrv??antihistamines??may help if allergies contributed to your sinusitis. ?? Use acetaminophen or ibuprofen to control pain, unless another pain medicine was prescribed. (Ifyou have chronic liver or kidney disease or ever had a stomach ulcer, talk with your doctor before using these medicines. Aspirin should never be used in anyone under 18 years of age who is ill with a fever. It may cause severe liver damage.) ?? Use nasal rinses or irrigation as instructed by your health care provider. ?? Don't smoke. This can worsen symptoms. Follow-up care Follow up with your healthcare provider or our staff if you are not improving within the next week. When to seek medical advice Call your healthcare provider if any of these occur: ?? Green or yellow discharge from the nose or into the throat ?? Facial pain or headache becoming more severe ?? Stiff neck ?? Unusual drowsiness or confusion ?? Swelling of the forehead or eyelids ?? Vision problems, including blurred or double vision ?? Fever of??100.4??F (38??C)??or higher, or as directed by your healthcare provider ?? Seizure ?? Breathing problems ?? Symptoms not resolving within 10 days ?? [id number] [employer]. [address] [place] [address], [place] [address]. All rights reserved. This information is not intended as a substitute for professional medical care. Always follow your healthcare professional's instructions. SINUSITIS, No Abx Sinusitis (No Antibiotics) The sinuses are air-filled spaces within the bones of the face. They connect to the inside of the nose.??Sinusitis??is an inflammation of the tissue lining the sinus cavity. Sinus inflammation can occur during a cold.??It can also be due to allergies to pollens and other particles in the air.??It can cause symptoms such as sinus congestion,??headache, sore throat, facial swelling??and fullness. It may also cause a low-grade fever.??No infection is present, and no antibiotic treatment is needed. Home care ?? Drink plenty of water, hot tea, and other liquids. This may help thin mucus. It also may promotesinus drainage. ?? Heat may help soothe painful areas of the face. Use a towel soaked in hot water. Or, business librarian the shower and direct the hot spray onto your face. Using a vaporizer along with a menthol rub at night may also help. ?? An??expectorant??containing guaifenesin may help thin the mucus and promote drainage from the sinuses. ?? [id number]??decongestants??may be used unless a similar medicine was prescribed. Nasal sprays work the fastest. Use one that contains phenylephrine or oxymetazoline. First blow the nose gently. Then use the spray. Do not use these medicines more often than directed on the label or symptomsmay get worse. You may also use tablets containing pseudoephedrine. Avoid products that combine ingredients, because side effects may be increased. Read labels. You can also ask the pharmacist for help. (NOTE:??Persons with high blood pressure should not use decongestants. They can raise blood pressure.) ?? Zsue-xes-gdgyjmj??antihistamines??may help if allergies contributed to your sinusitis. ?? Use acetaminophen or ibuprofen to control pain, unless another pain medicine was prescribed. (Ifyou have chronic liver or kidney disease or ever had a stomach ulcer, talk with your doctor before using these medicines. Aspirin should never be used in anyone under 18 years of age who is ill with a fever. It may cause severe liver damage.) ?? Use nasal rinses or irrigation as instructed by your health care provider. ?? Don't smoke. This can worsen symptoms. Follow-up care Follow up with your healthcare provider or our staff if you are not improving within the next week. When to seek medical advice Call your healthcare provider if any of these occur: ?? Green or yellow discharge from the nose or into the throat ?? Facial pain or headache becoming more severe ?? Stiff neck ?? Unusual drowsiness or confusion ?? Swelling of the forehead or eyelids ?? Vision problems, including blurred or double vision ?? Fever of??100.4??F (38??C)??or higher, or as directed by your healthcare provider ?? Seizure ?? Breathing problems ?? Symptoms not resolving within 10 days ?? [id number] [employer]. [address] [place] [address], [place] [address]. All rights reserved. This information is not intended as a substitute for professional medical care. Always follow your healthcare professional's instructions.
--- OUTSIDE RECORDS SUMMARY | 2022-11-04 19:43 | XMS_ITS | Continuity of Care Document ---
Author Name Unknown Organization [facility] Address [address] [place] [phone] Encounter 08/30/20 - 08/30/20 [facility] [address] [place] [phone] Discharge Disposition: Home Attending Physician: Stacy Harding NP Admitting Physician: Stacy Harding NP Referring Physician: Stacy Harding NP Allergies, Adverse Reactions, Alerts Substance Reaction Severity Status Nickel Active Social History Social History Type Response Smoking Status Never (less than 100 in lifetime);Never; Previous treatment: None; Ready to change: No; Smoking in Household No; Interest in Smoking Cessation Class No; Pt received Daniel Smoking Cessation [facility] Ed No entered on: 01/30/19 Sex Male
[2022-11-04 19:47] VITALS: PULSE 82; RESP 16; O2SAT 96
== END 2022-11-04 19:54 | disposition home or self-care (01) ==
LOC: ED 19:42
PROVIDERS: Emergency Provider Emergency Medicine Emergency Medical Services; PCP Pediatrics
DX: L03.031 Cellulitis of right toe (principal)
CPT/HCPCS: 99283; 99284

== ENCOUNTER 2024-02-22 15:23 | Emergency (ER) | payer BC, SELFPAY ==
[2024-02-22 15:27] VITALS: BP 143/78; PULSE 68; RESP 16; TEMP 35.9; O2SAT 99; BMI 31.0
--- NOTE | 2024-02-22 16:13 | ED_ITS ---
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 Patient notes that he was at work at [employer] in [place] and at approximately 1130 had the onset of lightheadedness while he was talking to a customer. He was able to finish talking to the customer and then went and sat down and the lightheadedness increased. He then began experience difficulty speaking and this lasted for approximately 5 minutes. He had no unusual shaking, loss of bladder or bowel control. He denied chest pain or shortness of breath. He had no changes in his vision but had the onset of a headache when this occurred. He notes that he is still lightheaded and his headache is in his forehead and the back of the head. It is exacerbated-both the pain and the lightheadedness if he tries to look up or moves his head suddenly. He denies any neck pain. He denies any ear f ullness or fainting even though he states he felt like he was going to faint when this started. Juan C does not have a past history of migraine, had eaten prior to this incident, is not experiencing fever chills sore throat runny nose diarrhea or dysuria. He has not been on any extended car rides or plane trips and denies lower extremity edema or calf tenderness. Related Data Home Medications ?Medication ?Instructions ?Recorded ?Confirmed No Known Home Medications 02/22/24 02/22/24 Allergies Allergy/AdvReac Type Severity Reaction Status Date / Time nickel Allergy Unknown Verified 02/22/24 15:30 Review of Systems Status of ROS: Reports: 10 or more systems reviewed and unremarkable except as noted in History and below Const: Denies: fever or chills Eyes: Denies: change in vision, blurry vision, blind spots, eye discharge or floaters ENMT: Denies: throat pain, change in hearing, tinnitus, vertigo, nasal discharge or nasal congestion Cardio: Reports: lightheadedness; Denies: chest pain, palpitations, edema, swelling of feet/ankles or shortness of breath with exertion Resp: Denies: shortness of breath, cough or wheezing GI: Reports: nausea; Denies: abdominal pain, vomiting, diarrhea or constipation : Denies: painful urination or urinary frequency Musculo: Denies: back pain Integ/Breast: Denies: rash Neuro: Reports: headache and dizziness; Denies: numbness in extremities, weakness in extremities or vertigo Allergy/Immuno: Denies: wheezing PFSH PFSH Social History Smoking Status: Never smoker Do you use any of these nicotine containing products: None Second hand tobacco smoke exposure: No How often do you have a drink containing alcohol: never How often do you have six or more drinks on one occasion: Never AUDIT-C Alcohol total score: 0 Non-prescribed substance use: denies use service: No Exam Narrative: Exam Narrative: Patient is alert and oriented. No acute distress. Does seem somewhat fatigued. Mentation is normal. EOM is full. No nystagmus noted. TMs without erythema or fluid. Neck is supple without lymphadenopathy. Heart with regular rate and rhythm. Lungs are clear bilaterally. Abdomen soft nontender. Moving all extremities. Upper and lower extremity strength fully intact. NIH SS 0 Const: Vital Signs, click to edit/add: Vital Signs - 24 hr 02/22/24 15:27 02/22/24 17:30 02/22/24 19:37 Temperature 96.7 F L Pulse Rate [Pulse Oximeter] 68 64 66 Respiratory Rate 16 16 16 Blood Pressure [Ri ght Upper Arm] 143/78 H 131/78 116/71 Pulse Oximetry 99 99 99 Oxygen Delivery Me thod Room Air Room Air Room Air Documenting provider has reviewed patient's vital signs: yes Course Course ED Course: Differential diagnosis includes but is not limited to subarachnoid hemorrhage, sentinel bleed, migraine, headache, early viral illness, dehydration, anxiety, benign positional vertigo. At this time will place IV give 1 L of fluid and Benadryl 12.5 mg IV. Will have patient undergo CT of the head. At this time all neurological deficits that he described-speech loss-have resolved. However he has proceeding headache and this was sudden in onset. Labs to include CBC, comprehensive, the urinalysis, troponin, CRP, COVID. Will also check EKG and orthostatic vital signs. Reevaluation(s) Reevaluation #1: Patient has somewhat improved after Benadryl. Headache has gone from 03/24 to 12/22. Head CT was negative for abnormality. I think this most likely represents a migraine but cannot explain the speech deficit that has now resolved. Will speak with Neurology. Consultations Consultation #1: Had the pleasure of speaking with Dr. Hernandez from Neurology. Agrees that this most likely represents a migraine but does suggest MRI either tomorrow morning as inpatient or as an outpatient. Does suggest treatment for migraine. Vital Signs Vital signs: Initial Vital Signs Temperature 96.7 F L 02/22/24 15:27 Temperature Source Temporal Artery Scan 02/22/24 15:27 Pulse Rate 68 02/22/24 15:27 Respiratory Rate 16 02/22/24 15:27 Blood Pressure 143/78 H 02/22/24 15:27 Blood Pressure Mean 99 02/22/24 15:27 Blood Pressure Position Sitting 02/22/24 15:27 Pulse Oximetry 99 02/22/24 15:27 Oxygen Delivery Method Room Air 02/22/24 15:27 Vital Signs Temperature 96.7 F L 02/22/24 15:27 Pulse Rate 68 02/22/24 15:27 Respiratory Rate 16 02/22/24 15:27 Blood Pressure 143/78 H 02/22/24 15:27 Pulse Oximetry 99 02/22/24 15:27 Oxygen Delivery Method Room Air 02/22/24 15:27 Temperature 96.7 F L 02/22/24 15:27 Pulse Rate 66 02/22/24 19:37 Respiratory Rate 16 02/22/24 19:37 Blood Pressure 116/71 02/22/24 19:37 Pulse Oximetry 99 02/22/24 19:37 Oxygen Delivery Method Room Air 02/22/24 19:37 Medications Administered Medications: Discontinued Medications Generic Name Dose Route Start Last Admin Trade Name Freq PRN Reason Stop Dose Admin Diphenhydramine HCl 12.5 mg 02/22/24 16:36 02/22/24 17:25 Diphenhydramine 50 Mg/Ml Inj IVP 02/22/24 16:37 12.5 mg ONCE ONE Administration Sodium Chloride 1,000 mls @ 1,000 mls/hr 02/22/24 16:37 02/22/24 17:54 0.9 % Sodium Chloride 1000 Ml IV 02/22/24 17:36 Infused .Q1H BRANDO Infusion Ketorolac Tromethamine 15 mg 02/22/24 18:46 02/22/24 19:00 Ketorolac 15 Mg/Ml Inj IVP 02/22/24 18:47 15 mg ONCE ONE Administration Metoclopramide HCl 10 mg 02/22/24 18:46 02/22/24 19:00 Metoclopramide Hcl 5 Mg/Ml Inj IVPB 02/22/24 18:47 10 mg ONCE ONE Administration MDM - Dizziness MDM Narrative Medical decision making narrative: 1. Migraine-patient noted to have improvement of his symptoms with simply Benadryl but complete resolution of his symptoms with Toradol 15 mg and Reglan 10 mg IV piggyback. Patient headache 8/10 improved to 0. Is feeling much better. He has no past history of migraines. Did not appear to have any triggering events. Return as needed. 2. Transient speech deficit-MRI suggested. Gave patient option staying with MRI tomorrow morning versus outpatient follow-up. He is electing to follow-up with his Clinic which is [facility]. I have asked him to return for any worsening symptoms. 3. Elevated LFTs-a likely representing fatty liver but would ask that he follow- up with primary MD for a recheck. 4. Disposition-home at this time. Recommend no alcohol, relaxing environment, pushing fluids and sleep. Return as needed for worsening symptoms. Medical Records Attestation: I reviewed the patient's medical records. Lab Data Attestation: I reviewed the patient's lab results. Labs: Lab Results 02/22/24 02/22/24 02/22/24 Range/Units 16:40 16:48 16:54 WBC 8.50 (4.50-11.00) K/uL RBC 5.51 (4.30-5.90) m/uL Hgb 16.1 (13.5-17.5) gm/dL Hct 47.3 (37.0-53.0) % MCV 86 (80-100) fL MCH 29 (26-34) pg MCHC 34 (32-36) gm/dL RDW Coeff of Richard 11.9 (11.5-15.5) % Plt Count 268 (140-440) K/uL Neut % (Auto) 48.2 (42.0-72.0) % Lymph % (Auto) 42.8 (20-44) % Davidson % (Auto) 6.9 (0.0-11.0) % Eos % (Auto) 1.1 (0.0-7.0) % Baso % (Auto) 0.4 (0.0-3.0) % Neut # (Auto) 4.10 (1.7-7.0) K/uL Lymph # (Auto) 3.64 H (0.90-2.90) K/uL Davidson # (Auto) 0.60 (0.00-0.90) K/UL Eos # (Auto) 0.09 (0.00-0.50) K/uL Baso # (Auto) 0.03 (0.00-0.30) K/uL Abs Immat Gran (auto) 0.05 (0.00-0.30) K/uL Imm/Tot Granulo (auto) 0.6 % Sodium 139 (135-149) mmol/L Potassium 3.8 (3.6-5.1) mmol/L Chloride 101 (96-114) mmol/L Carbon Dioxide 30 (20-32) mmol/L Anion Gap 8 (7-15) mEq/L BUN 10 (5-24) mg/dL Creatinine 0.8 (0.5-1.5) mg/dL Estimated Creat Clear 144.84 Estimated GFR 128 ml/min Glucose 94 (60-115) mg/dL Calcium 9.7 (8.4-10.6) mg/dL Total Bilirubin 0.6 (0.1-1.5) mg/dL AST 51 H (12-35) U/L ALT 87 H (4-50) U/L Alkaline Phosphatase 75 (40-150) U/L C-Reactive Protein < 0.5 L (0.5-1.0) mg/dL Total Protein 8.5 H (6.0-8.3) g/dL Albumin 5.3 H (3.3-5.0) g/dL Urine Color Yellow (Yellow) Urine Appearance Clear (Clear) Urine pH 7.0 (5.0-8.5) Ur Specific [place] 1.020 (1.000-1.030) Urine Protein Negative (Negative) Urine Glucose (UA) Negative (Negative) Urine Ketones Negative (Negative) Urine Blood Negative (Negative) Urine Nitrite Negative (Negative) Urine Bilirubin Negative (Negative) Urine Urobilinogen 0.2 (0.2-1.0) Ur Leukocyte Esterase Negative (Negative) Urine RBC 0-2 (0-2) Urine WBC 0-2 (0-5) Ur Squamous Epith Cells None (None-Few) Urine Bacteria None (None) SARS-CoV-2 (PCR) (Negative) Influenza Type A (PCR) (Negative) Influenza Type B (PCR) (Negative) RSV (PCR) (Negative) POC Troponin I 0.00 L (0.01-0.04) ng/ml 02/22/24 Range/Units Unknown WBC (4.50-11.00) K/uL RBC (4.30-5.90) m/uL Hgb (13.5-17.5) gm/dL Hct (37.0-53.0) % MCV (80-100) fL MCH (26-34) pg MCHC (32-36) gm/dL RDW Coeff of Richard (11.5-15.5) % Plt Count (140-440) K/uL Neut % (Auto) (42.0-72.0) % Lymph % (Auto) (20-44) % Davidson % (Auto) (0.0-11.0) % Eos % (Auto) (0.0-7.0) % Baso % (Auto) (0.0-3.0) % Neut # (Auto) (1.7-7.0) K/uL Lymph # (Auto) (0.90-2.90) K/uL Davidson # (Auto) (0.00-0.90) K/UL Eos # (Auto) (0.00-0.50) K/uL Baso # (Auto) (0.00-0.30) K/uL Abs Immat Gran (auto) (0.00-0.30) K/uL Imm/Tot Granulo (auto) % Sodium (135-149) mmol/L Potassium (3.6-5.1) mmol/L Chloride (96-114) mmol/L Carbon Dioxide (20-32) mmol/L Anion Gap (7-15) mEq/L BUN (5-24) mg/dL Creatinine (0.5-1.5) mg/dL Estimated Creat Clear Estimated GFR ml/min Glucose (60-115) mg/dL Calcium (8.4-10.6) mg/dL Total Bilirubin (0.1-1.5) mg/dL AST (12-35) U/L ALT (4-50) U/L Alkaline Phosphatase (40-150) U/L C-Reactive Protein (0.5-1.0) mg/dL Total Protein (6.0-8.3) g/dL Albumin (3.3-5.0) g/dL Urine Color (Yellow) Urine Appearance (Clear) Urine pH (5.0-8.5) Ur Specific [place] (1.000-1.030) Urine Protein (Negative) Urine Glucose (UA) (Negative) Urine Ketones (Negative) Urine Blood (Negative) Urine Nitrite (Negative) Urine Bilirubin (Negative) Urine Urobilinogen (0.2-1.0) Ur Leukocyte Esterase (Negative) Urine RBC (0-2) Urine WBC (0-5) Ur Squamous Epith Cells (None-Few) Urine Bacteria (None) SARS-CoV-2 (PCR) Negative SARS-CoV-2 (Negative) Influenza Type A (PCR) Negative PCR FLU A (Negative) Influenza Type B (PCR) Negative PCR FLU B (Negative) RSV (PCR) Negative PCR RSV (Negative) POC Troponin I (0.01-0.04) ng/ml Imaging Data CT scan - head: Attestation: I have reviewed the pertinent imaging results. My impression: No evidence of intracranial bleed Radiologist's impression: No CT evidence of acute intracranial hemorrhage, extra-axial collection, mass effect or midline shift. Feliciano-white matter differentiation is preserved. The ventricles are normal in size and morphology. The calvarium is unremarkable. The orbits are unremarkable. Mucous retention cyst in the left maxillary sinus. The mastoid air cells are well aerated. IMPRESSION: No CT evidence of acute intracranial abnormality. ECG Data Attestation: I personally reviewed and interpreted this ECG as follows: ECG interpretation date: 02/22/24 Interpretation: By my read normal sinus rhythm at a rate of 64. No acute ST or T-wave changes. No evidence of arrhythmia. QT and [place] intervals within normal limits. Discharge Plan Discharge Clinical Impression: Migraine Patient Disposition: Home, Self-Care Condition: Improved Additional Instructions: You may discharge home. Push fluids. Avoid alcohol. Try to get good sleep tonight. Please follow-up with the [facility] for the followin. An MRI of the brain-most likely you experienced a migraine today but we cannot entirely explain your loss of speech and slurred speech. This CT was normal but we would want an MRI to ensure there are no small strokes. 2. Recommend recheck of your liver function tests as they were mildly elevated today. It may represent something called fatty liver. Return to the emergency room for worsening symptoms, onset of new symptoms and as needed. Prescriptions: No Action No Known Home Medications Follow Up/Referrals: Geovanna Mcwilliams MD [Primary Care Provider] - Stand Alone Forms: [employer] Info Instructions
--- NOTE | 2024-02-22 16:36 | CRLHL7_ITS ---
For Patients: As a result of the Century Cures Act, medical imaging exams and procedure reports are released immediately into your electronic medical record. You may view this report before your referring provider. If you have questions, please contact your health care provider. CLINICAL HISTORY: Sudden onset lightheadedness with headache. TECHNIQUE: Standard helical CT image acquisition through the head was performed. COMPARISON: None available. FINDINGS: No CT evidence of acute intracranial hemorrhage, extra-axial collection, mass effect or midline shift. Feliciano-white matter differentiation is preserved. The ventricles are normal in size and morphology. The calvarium is unremarkable. The orbits are unremarkable. Mucous retention cyst in the left maxillary sinus. The mastoid air cells are well aerated. IMPRESSION: No CT evidence of acute intracranial abnormality. Please note that all CT scans at this facility use dose modulation, iterative reconstruction, and/or weight-based dosing when appropriate to reduce radiation dose to as low as reasonably achievable. Dictated by Man Woods MD @ 02/22/2024 5:46:39 PM (Electronically Signed)
[2024-02-22 16:56] LABS: Appearance Urine Clear (Clear); Bilirubin Urine Negative (Negative); Blood Urine Negative (Negative); Color Urine Yellow (Yellow); Glucose Urine Negative (Negative); Ketones Urine Negative (Negative); Leukocyte Esterase Urine Negative (Negative); Nitrite Urine Negative (Negative); Protein Urine Negative (Negative); Urobilinogen Urine 0.2 (0.2-1.0)
--- OUTSIDE RECORDS SUMMARY | 2024-02-22 16:56 | XMS_ITS | Clinical Summary ---
Author Organization [facility] Address [place], [place] [address] Care Team Providers Care Prototype Model Maker Name Role Phone Geovanna Mcwilliams MD Primary Care Provi carmelo Allergies Active Allergy Reactions Criticality Noted Date Comments Nickel Rash Unknown 09/29/2010 Depends on amount of exposure Medications Medication Sig Dispensed Refills Start Date End Date Status durable medical equipment (DME)Indications:Ruptu re of left gastrocnemius tendon, initial encounter DJO 01EFM, airselect, standerd medium tall 1 Each 05/08/2019 Active oxymetazoline (Afrin, oxymetazoline,) 0.05 % nasal sprayIndications:Recur rent epistaxis Multiple sprays in right nostril to soak packing three times daily 1 Bottle 1 01/01/2021 Active hydrocortisone 2.5% creamIndications:Other atopic dermatitis APPLY TOPICALLY TO AFFECTED AREA(S) TWICE DAILY IF NEEDED FOR ITCHING 28 g 10/15/2022 Active Active Problems Problem Noted Date Diagnosed Date Atopic dermatitis 12/09/2015 Pain, foot, chronic 04/01/2011 Other developmental speech or language disorder 12/18/2010 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 Overview: attention problems Immunizations Name Administration Dates Next Due COVID-19 vaccine (Moderna 100mcg/0.5mL) PF, MDV 12/10/2020,11/12/2020 DTaP 11/04/2006, 3,04/11/2002,01/22,2001 HIB-HepB (Comvax) 05/15/2003,01/22/2002,12/09/19 02 Hepatitis A (Peds) 10/06/2012,09/29/2010 Human Papilloma Virus Vaccine 05/23/2013, 013,10/06/2012 Inactivated Polio Vaccine 11/04/2006,,01/22/2002,12/08 Influenza A (H1N1), Inactiva saritha (Age >=3 Years) 08/05/2009,07/03/2009 Influenza, IIV3 (Age >=3 years) 05/27/2010,06/06,06/22/2008 Influenza, IIV4 06/07/2017,08/13/2016 Influenza,LAIV4 Live Intrana joanne (Flumist) 06/18/2014,05/30/2013,05/21/2011,05/27 MMR 11/20/2004,10/12/2002 Meningococcal Vaccine (Menveo) 06/07/2017,2013 Pneumococcal conj 7-Valent (Prevnar 7) 3,10/05/2002,2001 Tdap 10/06/2012 Varicella Vaccine 11/20/2004,10/12/2002 Family History Medical History Relation Name Comments Unknown Father Diabetes Maternal Grandfather Diabetes Maternal Grandmother Good Health Mother Relation Name Status Comments Father Maternal Grandfather Maternal Grandmother Mother Social History Tobacco Use Types Packs/Day Years Used Date Smoking Tobacco: Never Smokeless Tobacco: Never Tobacco Cessation:Counseling Given: Yes Comments:No passive smoke exposure Alcohol Use Standard Drinks/Week Comments No 0 (1 standard drink = 0.6 oz pur e alcohol) PHQ-2 Answer Date Recorded PHQ-2 TOTAL SCORE 0 01/01/2021 Social Connections Answer Date Recorded Frequency of Communication with Friends and Fami ly Not on file 08/15/2021 Financial Resource Strain Answer Date R ecorded Difficulty of Paying Living Expenses Not on file 08/15/2021 Difficulty of Paying Living Expenses Not on file 08/15/2021 Sex and Gender Information Value Date Recorded Sex Assigned at Not on file Gender Identity Not on file Sexual Orientation Not on file Obstetrics History Last Filed Vital Signs Vital Sign Reading Time Taken Comments Blood Pressure 134/85 07/26/2022 1: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 Pulse 72 07/26/2022 1: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 Temperature 36.3 ??C (97.4 ??F) 07/26/2022 1:04 AM CS T Respiratory Rate 18 07/26/2022 1: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 Oxygen Saturation 99% 07/26/2022 1: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 Inhaled Oxygen Concentration - - Weight 96.9 kg (213 lb 9.6 oz) 07/26/2022 12:30 AM BORING MACHINE [employer]PER[employer]ODUCTION Height 174.4 cm (5' 8.66) 07/26/2022 12:[address] Body Mass Index 31.86 07/26/2022 12:30 AM BORING MACHINE [employer]ODUCTION Plan of Treatment Health Maintenance Due Date Last Done Comments HIV for age 15-65 2016 Hepatitis C screening for age 18-79 2019 BMI (ht and wt on same day) for age 18+ 01/01/2022 01/01/2021 Depression screening for age 12+ 01/05/2022 01/05/2021, 01/01/2021, 01/01/2021, Additional history exists Tetanus booster 10/06/2022 10/06/2012 COVID-19 vaccine series ( season) 2023 12/10/2020, 11/12/2020 Influenza for age 9-49 04/15/2024 7, 08/13/2016, 06/18/2014, Additional history exists Pneumococcal series for age 6-64 Aged Out 05/15/2003, 10/05/2002, 2001 No longer eligible based on patient's age to complete this topic Tdap Completed 10/06/2012 HPV series for age 9-26 Completed 05/23/20 13, 11/27/2012, 11/27/2012, Additional history exists Care Teams Prototype Model Maker Relationship Specialty Start Date End Date Geovanna Mcwilliams MD [address] [place] [address] PCP - General Pediatric 02/24/11
[2024-02-22 17:05] LABS: Basophils Absolute Auto 0.03 K/uL (0.00-0.30); Basophils Percent Auto 0.4 % (0.0-3.0); Eosinophils Absolute Auto 0.09 K/uL (0.00-0.50); Eosinophils Percent Auto 1.1 % (0.0-7.0); Hematocrit 47.3 % (37.0-53.0); Hemoglobin* 16.1 gm/dL (13.5-17.5); Immature Granulocytes Abs Auto 0.05 K/uL (0.00-0.30); Immature Granulocytes Pct Auto 0.6 %; Lymphocytes Absolute Auto 3.64 K/uL (0.90-2.90); Lymphocytes Percent Auto 42.8 % (20-44); Mean Corpuscular HGB Conc 34 gm/dL (32-36); Mean Corpuscular Hemoglobin 29 pg (26-34); Mean Corpuscular Volume 86 fL (80-100); Monocytes Percent Auto 6.9 % (0.0-11.0); Neutrophils Percent Auto 48.2 % (42.0-72.0); Platelet Count* 268 K/uL (140-440); RDW Coefficient of Variation % 11.9 % (11.5-15.5); Red Blood Count 5.51 m/uL (4.30-5.90)
[2024-02-22 17:06] LABS: Slide Review Reflex No
[2024-02-22 17:14] LABS: Albumin* 5.3 g/dL (3.3-5.0); Chloride* 101 mmol/L (96-114); Sodium* 139 mmol/L (135-149)
[2024-02-22 17:16] LABS: Creatinine* 0.8 mg/dL (0.5-1.5); Est. Creatinine Clearance* 144.84; Estimated Glomerular Filt Rate 128 ml/min
[2024-02-22 17:17] LABS: Alanine Aminotransferase* 87 U/L (4-50); Alkaline Phosphatase* 75 U/L (40-150); Anion Gap 8 mEq/L (7-15); Aspartate Amino Transferase* 51 U/L (12-35); Bilirubin Total* 0.6 mg/dL (0.1-1.5); Blood Urea Nitrogen* 10 mg/dL (5-24); Carbon Dioxide* 30 mmol/L (20-32); Total Protein* 8.5 g/dL (6.0-8.3)
[2024-02-22 17:18] LABS: Calcium* 9.7 mg/dL (8.4-10.6); Glucose* 94 mg/dL (60-115)
[2024-02-22 17:24] LABS: C Reactive Protein* < 0.5 mg/dL (0.5-1.0)
[2024-02-22] MEDS: 0.9 % SODIUM CHLORIDE 1000 ml 1,000 ML IV (17:24)
[2024-02-22] MEDS: diphenhydrAMINE 50 MG/ML inj 12.5 MG IVP (17:25)
[2024-02-22 17:29] LABS: RBC Urine 0-2 (0-2); WBC Urine 0-2 (0-5)
[2024-02-22 17:30] VITALS: BP 131/78; PULSE 64; RESP 16; O2SAT 99
[2024-02-22 17:30] LABS: Potassium* 3.8 mmol/L (3.6-5.1)
[2024-02-22 18:25] LABS: PCR FLU A Negative PCR FLU A (Negative); PCR FLU B Negative PCR FLU B (Negative); PCR RSV Negative PCR RSV (Negative); SARS PCR* Negative SARS-CoV-2 (Negative)
[2024-02-22] MEDS: METOCLOPRAMIDE HCL 5 MG/ML INJ 10 MG IVPB (19:00)
[2024-02-22] MEDS: KETOROLAC 15 MG/ML inj IVP (19:00)
[2024-02-22 19:37] VITALS: BP 116/71; PULSE 66; RESP 16; O2SAT 99
== END 2024-02-22 19:59 | disposition home or self-care (01) ==
PROVIDERS: Emergency Provider Family Medicine; PCP Pediatrics
DX: G43.909 Migraine, unspecified, not intractable, without status migrainosus (principal)
CPT/HCPCS: 36415; 70450; 80053; 81001; 84484; 85025; 86140; 87631; 93005; 96365; 96375; 99284; 99285; J1200; J1885; J2765; J7030

== ENCOUNTER 2025-05-05 13:56 | Emergency (ER) | payer OTHER, SELFPAY ==
--- NOTE | 2025-05-05 | CRLHL7_ITS ---
For Patients: As a result of the Cures Act, medical imaging exams and procedure reports are released immediately into your electronic medical record. You may view this report before your referring provider. If you have questions, please contact your health care provider. INDICATION: Twisted foot and ankle playing basketball COMPARISON: None. TECHNIQUE: Three views right ankle. FINDINGS: No acute or healing fracture. Normal joint alignment. Joint spaces are normal. No focal bone lesions. Normal bone mineralization. Soft tissues are normal. No foreign body. IMPRESSION: Normal right ankle radiographs. Dictated by Sivan Paul MD @ 05/05/2025 2:39:57 PM (Electronically Signed)
--- OUTSIDE RECORDS SUMMARY | 2025-05-05 13:59 | XMS_ITS | Clinical Summary ---
Author Organization [facility] Address [address] [place] [id number] Care Team Providers Care Car Checker Name Role Phone Pcp, No Primary Care Provider Unavailabl e Allergies Active Allergy Reactions Criticality Noted Date Comments Nickel Rash Unknown 09/29/2010 Depends on amount of exposure Medications durable medical equipment (DME)Indications:R upture of left gastrocnemius tendon, initial encounter DJO 01EFM, airselect, standerd medium tall 1 Each 9 Active oxymetazoline (Afrin, oxymetazoline,) 0.05 % nasal sprayIndications:R ecurrent epistaxis Multiple sprays in right nostril to soak packing three times daily 1 Bottle 1 1 Active hydrocortisone 2.5% creamIndications:O ther atopic dermatitis APPLY TOPICALLY TO AFFECTED AREA(S) TWICE DAILY IF NEEDED FOR ITCHING 28 g 3 Active ondansetron 8 mg disintegrating tabletIndications: Gastroenteritis Place 1 Tablet (8 mg) on the tongue every 8 hours if needed for Nausea/Vomiti ng. 12 Tablet 5 Active dicyclomine 10 mg capsuleIndications :Gastroenteritis Take 1 Capsule (10 mg) by mouth every 6 hours if needed (Stomachache) . 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 (09/29/2010): attention problems Immunizations Immunization Administration Dates Next Due COVID-19 vaccine (Moderna 100mcg/0.5mL) PF, MDV 12/10/2020,11/12/2020 DTaP 11/04/2006, 3,04/11/2002,01/22,2001 HIB-HepB (Comvax) 05/15/2003,01/22/2002,12/09/19 02 Hepatitis A (Peds) 10/06/2012,09/29/2010 Human Papilloma Virus Vaccine 05/23/2013, 013,10/06/2012 Inactivated Polio Vaccine 11/04/2006,,01/22/2002,12/08 Influenza A (H1N1), Inactiva saritha (Age >=3 Years) 08/05/2009,07/03/2009 Influenza, IIV3 (Age >=3 years) 05/27/2010,06/06,06/22/2008 Influenza, IIV4 06/07/2017,08/13/2016 Influenza,LAIV3 Live Intrana joanne (Flumist) 05/21/2011,05/27/2010 Influenza,LAIV4 Live Intrana joanne (Flumist) 06/18/2014,05/30/2013,05/21/2011,05/27 MENINGOCOCCAL VACCINE 2 VIAL 2MO-55YO (MENVEO) 06/07/2017,04/09/2014 MMR 11/20/2004,10/12/2002 Pneumococcal conj 7-Valent (Prevnar 7) 3,10/05/2002,2001 Tdap [...] 0 01/01/2021 Social Connections Answer Date Recorded Do you often feel lonely or isolated from those around you? 0 02/27/2024 Financial Resource Strain Answer Date R ecorded Difficulty of Paying Living Expenses 3 02/27/2024 Difficulty of Paying Living Expenses Not on file 02/27/2024 Food Insecurity Answer Date Recorded Do you worry your food will run out before you are able to buy more? 1 02/27/2024 Transportation Needs Answer Date Record ed Does lack of transportation keep you from medica l appointments? 1 02/27/2024 Does lack of transportation keep you from work, meetings or getting things that you need? 1 02/27/2024 Housing Stability Answer Date Recorded What is your housing situation today? 1 02/27/2024 Interpersonal Safety Answer Date Record ed Are you being hit, kicked, p ushed or yelled at (see row info)? No 01/15/2025 Interpersonal Safety Abuse 12 - 18 Not on file 01/15/2025 Interpersonal Safety Ambulatory Vulnerability No t on file 01/15/2025 Utilities Answer Date Recorded Do you have trouble paying f or utilities (for example, heat, electricity, water, phone)? 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 Gender Identity Not on file Sexual Orientation Not on file Occupation Industry Job Start Date Job End Date Student Not on file Not on file Not on file Obstetrics History Last Filed Vital Signs Vital Sign Reading Time Taken Comments Blood Pressure 140/90 01/15/2025 7:43 AM CDT Pulse 111 01/15/2025 7:43 AM CDT Temperature 35.9 C (96.6 F) 01/15/2025 7:43 AM CDT Respiratory Rate 12 01/15/2025 7:43 AM CDT Oxygen Saturation 97% 01/15/2025 7:43 AM CDT Inhaled Oxygen Concentration - - Weight 104 kg (229 lb 4.8 oz) 01/15/2025 7:43 AM CDT Height 172.7 cm (5' 8) 01/15/2025 7:43 AM CDT Body Mass Index 34.86 01/15/2025 7:43 AM CDT Plan of Treatment Health Maintenance Due Date Last Done Comments HIV for age 15-65 2016 Hepatitis C screening for age 18-79 2019 BMI (ht and wt on same day) for age 18+ 01/01/2022 01/01/2021 Depression screening for age 12+ 01/05/2022 01/05/2021, 01/01/2021, 01/01/2021, Additional history exists Tetanus booster 10/06/2022 10/06/2012 COVID-19 vaccine series ( season) 2025 12/10/2020, 11/12/2020 Influenza Vaccine (#1) 2025 7, 08/13/2016, 06/18/2014, Additional history exists RSV vaccine for adults or (1 - 1-dose 75+ series) 2076 Hepatitis B series for 19+ Completed 05/15, 01/22/2002, 2001 Pneumococcal series for age 6-49 Aged Out 05/15/2003, 10/05/2002, 2001 No longer eligible based on patient's age to complete this topic HPV series for age 9-45 Completed 05/23/20 13, 11/27/2012, 11/27/2012, Additional history exists Insurance TRL 110 [id number] [place] [id number] [facility] [id number] [place] [address] [id number] [id number] Care Teams Car Checker Relationship Specialty Start Date End Date Pcp, No . PCP - General 02/27/24
[2025-05-05 14:01] VITALS: BP 134/87; PULSE 83; RESP 18; TEMP 36.9; O2SAT 98; BMI 32.6
--- NOTE | 2025-05-05 14:05 | CRLHL7_ITS ---
For Patients: As a result of the Cures Act, medical imaging exams and procedure reports are released immediately into your electronic medical record. You may view this report before your referring provider. If you have questions, please contact your health care provider. INDICATION: Twisted foot and ankle playing basketball COMPARISON: None. TECHNIQUE: Three views right foot, nonweightbearing. FINDINGS: There is a nondisplaced small avulsion fracture from the proximal lateral cuboid. No other fracture. Normal joint alignment. Joint spaces are normal. No focal bone lesions. Normal bone mineralization. Soft tissue swelling. No foreign body. IMPRESSION: Small nondisplaced right cuboid avulsion fracture. Dictated by Sivan Paul MD @ 05/05/2025 2:39:21 PM (Electronically Signed)
--- NOTE | 2025-05-05 15:26 | ED_ITS ---
HPI - General Adult General Chief complaint: Extremity Pain/Injury, Lower Stated complaint: R foot injury Time Seen by Provider: 05/05/25 14:55 Source: patient Mode of arrival: ambulatory Limitations: no limitations History of Present Illness HPI narrative: 24-year-old male presenting today with foot pain. Patient states he was playing basketball yesterday when up for a lay-up when he came down he rolled his ankle and felt a pop. He was able to get up and walk. He went home and as the day progresses started having more pain over the lateral foot. Denies other injury. He is complaining of pain over the lateral foot, distal to as well as posterior to the lateral malleolus, radiating up into the lateral leg. Related Data Home Medications ?Medication ?Instructions ?Recorded ?Confirmed No Known Home Medications 02/22/2404/16 Allergies Allergy/AdvReac Type Severity Reaction Status Date / Time nickel Allergy Unknown Verified 05/05/25 14:04 Review of Systems Status of ROS: Reports: 6 or more systems reviewed and unremarkable except as noted in History and below [facility] Social History Smoking Status: Never smoker Do you use any of these nicotine containing products: None Second hand tobacco smoke exposure: No How often do you have a drink containing alcohol: never How often do you have six or more drinks on one occasion: Never AUDIT-C Alcohol total score: 0 Non-prescribed substance use: denies use service: No Exam Narrative: Exam Narrative: Well-nourished well-developed patient in no acute distress. Alert and oriented. Answers questions appropriately. Mood and affect are appropriate. Thoughts are goal oriented and rational. No tangential or magical thinking noted. Patient speaks in full sentences without needing to catch his breath. HEENT: Normocephalic atraumatic. Pupils are equally round reactive to light. Extraocular muscles are intact. Conjunctivae are moist without any icterus noted. Moist mucous membranes. Extremities: Patient has swelling and tenderness over the lateral foot just distal to the lateral malleolus. He has normal DP and PT pulses. There is no ecchymosis or erythema present. He does not have tenderness over the lateral malleolus or superior to it. Of note patient also has an ingrown big toenail. Const: Vital Signs, click to edit/add: Vital Signs - 24 hr 05/05/25 14:01 Temperature 98.5 F Pulse Rate [Right Pulse Oximeter] 83 Respiratory Rate 18 Blood Pressure [Ri ght Upper Arm] 134/87 Pulse Oximetry 98 Oxygen Delivery Me thod Room Air Course Course ED Course: X-ray of the foot and ankle were done - shows an avulsion fracture of the cuboid. Vital Signs Vital signs: Initial Vital Signs Temperature 98.5 F 05/05/25 14:01 Temperature Source Temporal Artery Scan 05/05/25 14:01 Pulse Rate 83 05/05/25 14:01 Pulse Rhythm Regular 05/05/25 14:01 Pulse Strength 3+ Normal 05/05/25 14:01 Respiratory Rate 18 05/05/25 14:01 Blood Pressure 134/87 05/05/25 14:01 Blood Pressure Mean 102 05/05/25 14:01 Blood Pressure Position Sitting 05/05/25 14:01 Pulse Oximetry 98 05/05/25 14:01 Oxygen Delivery Method Room Air 05/05/25 14:01 Vital Signs Temperature 98.5 F 05/05/25 14:01 Pulse Rate 83 05/05/25 14:01 Respiratory Rate 18 05/05/25 14:01 Blood Pressure 134/87 05/05/25 14:01 Pulse Oximetry 98 05/05/25 14:01 Oxygen Delivery Method Room Air 05/05/25 14:01 Temperature 98.5 F 05/05/25 14:01 Pulse Rate 83 05/05/25 14:01 Respiratory Rate 18 05/05/25 14:01 Blood Pressure 134/87 05/05/25 14:01 Pulse Oximetry 98 05/05/25 14:01 Oxygen Delivery Method Room Air 05/05/25 14:01 Medical Decision Making MDM Narrative Medical decision making narrative: 24-year-old male with close cuboid fracture. Patient placed in a walking boot. Can use crutches for the 1st couple of weeks if needed. Patient will follow-up with orthopedics next week. Imaging Data X-ray foot: Attestation: I have reviewed the pertinent imaging results. Radiologist's impression: TECHNIQUE: Three views right foot, nonweightbearing. FINDINGS: There is a nondisplaced small avulsion fracture from the proximal lateral cuboid. No other fracture. Normal joint alignment. Joint spaces are normal. No focal bone lesions. Normal bone mineralization. Soft tissue swelling. No foreign body. IMPRESSION: Small nondisplaced right cuboid avulsion fracture. X-ray ankle: Attestation: I have reviewed the pertinent imaging results. Radiologist's impression: TECHNIQUE: Three views right ankle. FINDINGS: No acute or healing fracture. Normal joint alignment. Joint spaces are normal. No focal bone lesions. Normal bone mineralization. Soft tissues are normal. No foreign body. IMPRESSION: Normal right ankle radiographs. Discharge Plan Discharge Clinical Impression: Closed fracture cuboid Patient Disposition: Home, Self-Care Condition: Stable Instructions: Crutch Instructions (ED) Additional Instructions: Wear boot at all times, can take off to sleep. Follow up appointment with Orthopedics at the [facility] clinic on Tuesday, 05/07 @ 1:00PM. Okay to use ibuprofen or Tylenol as needed for pain. Recommend elevating the foot as much as possible today and icing it. Do not apply ice directly to the skin and do not ice for more than 20 minutes at a time every 2 hours. Prescriptions: No Action No Known Home Medications Follow Up/Referrals: Geovanna Mcwilliams MD [Primary Care Provider, Pediatrics] Stand Alone Forms: [employer] Info Instructions
== END 2025-05-05 15:23 | disposition home or self-care (01) ==
LOC: ED 15:17
PROVIDERS: Emergency Provider Family Medicine; PCP Pediatrics
DX: S92.214A Nondisplaced fracture of cuboid bone of right foot, initial encounter for closed fracture (principal); X50.1XXA Overexertion from prolonged static or awkward postures, initial encounter; Y93.67 Activity, basketball
CPT/HCPCS: 73610; 73630; 99283; 99284